=== PATIENT | male | born 1985 | race Two or more races ===

== ENCOUNTER 2017-01-27 18:49 | Emergency (ER) | payer BC ==
[2017-01-27 19:06] VITALS: BP 130/86; PULSE 69; RESP 16; TEMP 98.8; O2SAT 97
[2017-01-27] MEDS ORDERED: ONDANSETRON 4 MG/2 ML VIAL IVP ONE (19:06)
[2017-01-27] MEDS ORDERED: NS 1,000 ML IV ONE (19:10)
[2017-01-27 19:52] LABS: ANION GAP 16 mEq/L (8-16); CALCIUM 9.1 mg/dL (8.5-10.4); CARBON DIOXIDE 22 mEq/l (22-31); CHLORIDE 96 mEq/L (97-110); CREATININE 0.8 mg/dL (0.7-1.3); GLOMERULAR FILTRATION RATE > 60; GLUCOSE 105 mg/dL (70-100); POTASSIUM 4.1 mEq/L (3.5-5.2); SODIUM 134 mEq/L (134-144)
[2017-01-27 20:03] LABS: COLOR DARK YELLOW; LEUKOCYTE ESTERASE,URINE NEGATIVE (NEGATIVE); NITRITE,URINE NEGATIVE (NEGATIVE)
[2017-01-27 20:09] LABS: MUCUS 2+ /lpf (NONE-1+); RBC,URINE OCCASIONAL /hpf (0-3); WBC,URINE NONE SEEN /hpf (0-3)
--- NOTE | 2017-01-27 20:09 | UCPHY ---
H & P Patient Type: New Chief Complaint Nursing Narrative: C/o nausea, diarrhea, sulfer taste in mouth, chills x 2 days. Denies fever. Time Seen by Provider: 01/27/17 19:29 HPI/ROS: This patient complains of diarrhea. Onset of symptoms 2 days prior to arrival with he reports diarrhea every 30 minutes today-loose watery. He started developed some lightheadedness this evening as well as nausea the prompted his visit for further evaluation. He reports diminished appetite associated with the symptoms but is still tolerating p.o. intake. ROS: No fevers or chills. No other constitutional symptoms. HEENT: No recent URI symptoms. Neuro: No complaints. Pulmonary: No cough cardiovascular: Lightheaded as noted above. No chest pain or heart palpitations. GI: No blood in stool or emesis. : No urinary symptoms though he did feel like he had mild testicular ache on the left side earlier today that has since resolved. 10 point ROS is otherwise negative. Source: Patient Exam Limitations: No limitations - Personal History Current Tetanus Diphtheria and Acellular Pertussis (TDAP): Yes Tetanus Vaccine Date: within 10 years - Medical/Surgical History PMH: Moderate obesity. Otherwise healthy Hx Asthma: No Hx Chronic Respiratory Disease: No Hx Diabetes: No Hx Cardiac Disease: No Hx Renal Disease: No Hx Cirrhosis: No Hx Alcoholism: No Hx HIV/AIDS: No Hx Splenectomy or Spleen Trauma: No Other PMH: L knee surgery - Family History Significant Family History: No pertinent family hx - Social History Smoking Status: Never smoked Alcohol Use: Rarely Drug Use: None Additional Social History: His and daughter had a similar illness last week, however they had associated vomiting as well - Physical Exam Exam: General Appearance: Alert, no distress. Eyes: Pupils equal and round no pallor or injection. ENT, Mouth: Mucous membranes moist. Respiratory: There are no retractions, lungs are clear to auscultation. Cardiovascular: Regular rate and rhythm. Gastrointestinal: Hyperactive bowel sounds, soft, nontender Back: No CVA tenderness : No testicular tenderness currently. Circumcised penis with no urethral discharge or genital lesions. Neurological: Alert with no focal deficits. Skin: Warm and dry, no rashes. Musculoskeletal: Neck is supple nontender. Extremities are symmetrical, full range of motion. Psychiatric: Mood and affect are normal DIFFERENTIAL DIAGNOSIS: After history and physical exam differential diagnosis was considered for viral gastroenteritis, rule out metabolic abnormalities, dehydration, UTI Constitutional: Initial Vital Signs Temperature (C) 37.1 C 01/27/17 19:00 Heart Rate 69 01/27/17 19:00 Respiratory Rate 16 01/27/17 19:00 Blood Pressure 130/86 H 01/27/17 19:00 O2 Sat (%) 97 01/27/17 19:00 O2 Delivery Mode Room Air Allergies/Adverse Reactions: No Known Allergies Allergy (Verified 01/27/17 19:06) Home Medications: Medication Instructions Recorded Ondansetron Odt [Zofran Odt] 4 - 8 mg PO Q4PRN PRN #4 tab 01/27/17 Zyrtec 01/27/17 Medical Decision Making ED Course/Re-evaluation: Studies: Basic metabolic panel normal, urinalysis normal. IV normal saline bolus, Zofran with resolution of nausea. I counseled patient regarding viral gastroenteritis. No concerning findings on today's evaluation. - Data Points Laboratory Results: Laboratory Results 01/27/17 19:30 01/27/17 01/27/17 19:55 19:30 Sodium 134 mEq/L mEq/L (134-144) Potassium 4.1 mEq/L mEq/L (3.5-5.2) Chloride 96 mEq/L L mEq/L (97-110) Carbon Dioxide 22 mEq/l mEq/l (22-31) Anion Gap 16 mEq/L mEq/L (8-16) BUN 14 mg/dL mg/dL (7-23) Creatinine 0.8 mg/dL mg/dL (0.7-1.3) Estimated GFR > 60 Glucose 105 mg/dL H mg/dL (70-100) Calcium 9.1 mg/dL mg/dL (8.5-10.4) Urine Color DARK YELLOW Urine Appearance CLEAR Urine pH 6.0 (5.0-7.5) Ur Specific [place] 1.020 (1.002-1.030) Urine Protein NEGATIVE (NEGATIVE) Urine Ketones NEGATIVE (NEGATIVE) Urine Blood TRACE H (NEGATIVE) Urine Nitrate NEGATIVE (NEGATIVE) Urine Bilirubin NEGATIVE (NEGATIVE) Urine Urobilinogen 0.2 EU EU (0.2-1.0) Ur Leukocyte Esterase NEGATIVE (NEGATIVE) Urine RBC OCCASIONAL /hpf /hpf (0-3) Urine WBC NONE SEEN /hpf /hpf (0-3) Ur Epithelial Cells TRACE /lpf /lpf (NONE-1+) Urine Mucus 2+ /lpf H /lpf (NONE-1+) Ur Culture Indicated? NOT INDICATED (NI) Urine Glucose NEGATIVE (NEGATIVE) Medications Given: Discontinued Medications Ondansetron HCl (Zofran) 4 mg IVP EDNOW ONE Stop: 01/27/17 19:07 Last Admin: 01/27/17 19:25 Dose: 4 mg Departure - Departure Disposition: Home, Routine, Self-Care Clinical Impression: Nausea, Dehydration Condition: Good Instructions: Acute Diarrhea (ED) Additional Instructions: Diagnosis: Viral gastroenteritis 2. Dehydration Plan: Drink plenty fluids Light diet to feel improved Zofran for nausea if needed Loperamide [id number] if needed for diarrhea. Return for any significant worsening despite treatment plan Referrals: NONE *PRIMARY CARE P,. [Primary Care Provider] - As per Instructions Prescriptions: Ondansetron Odt [Zofran Odt] 4 - 8 mg PO Q4PRN PRN #4 tab PRN Reason: Vomiting - PQRS PQRS Measurement: NA
== END 2017-01-27 20:15 | disposition home or self-care (01) ==
LOC: CED 18:49
DX: A08.4 Viral intestinal infection, unspecified (principal); E86.0 Dehydration; E66.9 Obesity, unspecified; Z68.34 Body mass index [BMI] 34.0-34.9, adult
CPT/HCPCS: 80048-PO; 81003-PO; 81015-PO; 96360-PO; 96361-PO; 96374-PO; 99204-PO; G0463-PO; J2405

== ENCOUNTER 2017-03-17 14:58 | Emergency (ER) | payer BC ==
--- NOTE | 2017-03-17 15:19 | EDPHY ---
H & P Stated Complaint: anxiety racing heart Time Seen by Provider: 03/17/17 15:18 HPI/ROS: CHIEF COMPLAINT: Palpitations HISTORY OF PRESENT ILLNESS: The patient presents to the ED after an episode of palpitations which occurred at work today. The patient reported that his heart rate was in the low 100s. The patient had mild dyspnea and sensation of anxiety associated with the symptoms. He had no chest pain per se. The patient has no prior history of the symptoms. The patient denies significant past medical history. The patient does report he has been under some increasing stress at work. The patient did reportedly have 1 alcoholic beverage last night which is atypical for him. Patient denies any fever, cough, congestion, headache, neck pain, numbness, weakness or additional acute complaints. The patient is currently asymptomatic. REVIEW OF SYSTEMS: A comprehensive 10 point review of systems is otherwise negative aside from elements mentioned in the history of present illness. Source: Patient - Personal History Current Tetanus/Diphtheria Vaccine: Unsure Tetanus Vaccine Date: within 10 years - Medical/Surgical History Hx Asthma: No Hx Chronic Respiratory Disease: No Hx Diabetes: No Hx Cardiac Disease: No Hx Renal Disease: No Hx Cirrhosis: No Hx Alcoholism: No Hx HIV/AIDS: No Hx Splenectomy or Spleen Trauma: No Other PMH: L knee surgery - Social History Smoking Status: Never smoked - Physical Exam Exam: General Appearance: Alert, no distress Eyes: Pupils equal and round no pallor or injection ENT, Mouth: Mucous membranes moist Respiratory: There are no retractions, lungs are clear to auscultation Cardiovascular: Regular rate and rhythm Gastrointestinal: Abdomen is soft and nontender, no masses, bowel sounds normal Neurological: A&O, normal motor function, normal sensory exam, normal cranial nerves Skin: Warm and dry, no rashes Musculoskeletal: Neck is supple nontender Extremities: symmetrical, full range of motion Constitutional: Initial Vital Signs Temperature (C) 36.6 C 03/17/17 15:11 Heart Rate 62 03/17/17 15:11 Respiratory Rate 20 03/17/17 15:11 Blood Pressure 131/85 H 03/17/17 15:11 O2 Sat (%) 95 03/17/17 15:11 O2 Delivery Mode Room Air Allergies/Adverse Reactions: No Known Allergies Allergy (Verified 01/27/17 19:06) Home Medications: Medication Instructions Recorded Ondansetron Odt [Zofran Odt] 4 - 8 mg PO Q4PRN PRN #4 tab 01/27/17 Zyrtec 01/27/17 Medical Decision Making - Diagnostics EKG Interpretation: EKG: Complete interpretation has been separately recorded in the [employer] archive. Summary impression: [ ] ED Course/Re-evaluation: The patient presents to the ED after an episode of palpitations likely precipitated by mild dehydration and possibly anxiety. In the emergency department, the patient's EKG demonstrates no evidence of an arrhythmia. The patient's electrolytes and troponin are within normal limits. The patient was placed on a cardiac care nurse and observed in the ED without evidence of recurrent arrhythmia. At this point time I do feel the patient can be discharged home with instructions to return to the ED for any palpitations, shortness of breath or other concerns. Patient was re-evaluated by myself at 4:07 p.m. and is in no acute distress. Differential Diagnosis: Differential diagnosis considered includes arrhythmia, metabolic abnormality, dehydration, acute coronary syndrome, myocardial infarction - Data Points Laboratory Results: Laboratory Results 03/17/17 15:02 03/17/17 15:02 03/17/17 03/17/17 15:02 15:02 WBC 10.41 10^3/uL H 10^3/uL (3.80-9.50) RBC 5.47 10^6/uL 10^6/uL (4.40-6.38) Hgb 15.9 g/dL g/dL (13.7-17.5) Hct 45.4 % % (40.0-51.0) MCV 83.0 fL fL (81.5-99.8) MCH 29.1 pg pg (27.9-34.1) MCHC 35.0 g/dL g/dL (32.4-36.7) RDW 13.6 % % (11.5-15.2) Plt Count 250 10^3/uL 10^3/uL (150-400) MPV 11.1 fL fL (8.7-11.7) Neut % (Auto) 48.7 % % (39.3-74.2) Lymph % (Auto) 39.5 % % (15.0-45.0) Clinch % (Auto) 8.5 % % (4.5-13.0) Eos % (Auto) 2.6 % % (0.6-7.6) Baso % (Auto) 0.4 % % (0.3-1.7) Nucleat RBC Rel Count 0.0 % % (0.0-0.2) Absolute Neuts (auto) 5.08 10^3/uL 10^3/uL (1.70-6.50) Absolute Lymphs (auto) 4.11 10^3/uL H 10^3/uL (1.00-3.00) Absolute Monos (auto) 0.88 10^3/uL H 10^3/uL (0.30-0.80) Absolute Eos (auto) 0.27 10^3/uL 10^3/uL (0.03-0.40) Absolute Basos (auto) 0.04 10^3/uL 10^3/uL (0.02-0.10) Absolute Nucleated RBC 0.00 10^3/uL 10^3/uL (0-0.01) Immature Gran % 0.3 % % (0.0-1.1) Immature Gran # 0.03 10^3/uL 10^3/uL (0.00-0.10) Sodium 141 mEq/L mEq/L (134-144) Potassium 3.9 mEq/L mEq/L (3.5-5.2) Chloride 101 mEq/L mEq/L (97-110) Carbon Dioxide 27 mEq/l mEq/l (22-31) Anion Gap 13 mEq/L mEq/L (8-16) BUN 15 mg/dL mg/dL (7-23) Creatinine 1.0 mg/dL mg/dL (0.7-1.3) Estimated GFR > 60 Glucose 88 mg/dL mg/dL (70-100) Calcium 9.6 mg/dL mg/dL (8.5-10.4) Troponin I < 0.012 ng/mL ng/mL (0-0.034) Medications Given: Discontinued Medications Sodium Chloride (Ns) 1,000 mls @ 0 mls/hr IV ONCE ONE PRN Reason: Wide Open Stop: 03/17/17 15:37 Last Admin: 03/17/17 15:37 Dose: 1,000 mls Departure - Departure Disposition: Home, Routine, Self-Care Clinical Impression: Palpitations Condition: Good Instructions: Palpitations (ED) Additional Instructions: 1. Please return to the emergency department for any recurrent palpitations, chest pain, difficulty breathing or other concerns. 2. I do recommend following up with our on-call rotating equipment specialist for any ongoing intermittent palpitations. Further testing such as a treadmill stress test or Holter monitor may be indicated. Referrals: Harrison Greco MD [Medical Doctor] - As per Instructions
--- NOTE | 2017-03-17 15:31 | CPEKG ---
Heart Rate: 77 RR Interval: 779 P-R Interval: 164 QRSD Interval: 90 QT Interval: 372 QTC Interval: 421 P Putney: 52 QRS Putney: 12 T Wave Putney: 30 EKG Severity - NORMAL ECG - EKG Impression: SINUS RHYTHM Electronically Signed By: Dre Garcia 17-Mar-2017 16:10:03
[2017-03-17] MEDS ORDERED: NS 1,000 ML IV ONE (15:36)
[2017-03-17 15:38] LABS: % IMMATURE GRANULYOCYTES 0.3 % (0.0-1.1); ABSOLUTE IMMATURE GRANULOCYTES 0.03 10^3/uL (0.00-0.10); ADD DIFF? NO; ADD MORPH? NO; ADD SCAN? NO; ATYPICAL LYMPHOCYTE FLAG 10 (0-99); FRAGMENT RBC FLAG 0 (0-99); HEMATOCRIT 45.4 % (40.0-51.0); HEMOGLOBIN 15.9 g/dL (13.7-17.5); LEFT SHIFT FLG 0 (0-99); LIPEMIA HEMOLYSIS FLAG 90 (0-99); MEAN CELL HEMOGLOBIN 29.1 pg (27.9-34.1); MEAN PLATELET VOLUME 11.1 fL (8.7-11.7); PLATELET CLUMPS FLAG 10 (0-99); PLATELET COUNT 250 10^3/uL (150-400); RED BLOOD CELL COUNT 5.47 10^6/uL (4.40-6.38); RED CELL DISTRIBUTION WIDTH 13.6 % (11.5-15.2)
[2017-03-17 15:53] LABS: ANION GAP 13 mEq/L (8-16); CALCIUM 9.6 mg/dL (8.5-10.4); CARBON DIOXIDE 27 mEq/l (22-31); CHLORIDE 101 mEq/L (97-110); GLOMERULAR FILTRATION RATE > 60; GLUCOSE 88 mg/dL (70-100); POTASSIUM 3.9 mEq/L (3.5-5.2); SODIUM 141 mEq/L (134-144)
[2017-03-17 16:02] LABS: TROPONIN I < 0.012 ng/mL (0-0.034)
[2017-03-17 16:43] VITALS: BP 142/95; PULSE 56; RESP 16; TEMP 98.4; O2SAT 97
== END 2017-03-17 16:43 | disposition home or self-care (01) ==
LOC: EDUNIT#
DX: R00.2 Palpitations (principal)

== ENCOUNTER → 2017-10-09 | Outpatient (CLI) | payer BC | LOC: FIMAGING 10:07 | PROVIDERS: ATTEND Family Medicine | DX: M25.511 Pain in right shoulder (principal); W19.XXXA Unspecified fall, initial encounter ==